=== PATIENT | female | born 1955 | race Caucasian/White ===

== ENCOUNTER 2023-09-10 10:42 | Outpatient (CLI) | payer MEDICARE | END 2023-09-10 10:43 | disposition home or self-care (01) | LOC: CSHMAMMO 10:42 | PROVIDERS: ATTEND Family Medicine | DX: Z12.31 Encounter for screening mammogram for malignant neoplasm of breast (principal); M81.0 Age-related osteoporosis without current pathological fracture; Z80.3 Family history of malignant neoplasm of breast | CPT/HCPCS: 77063; 77067; 77080 ==